=== PATIENT | female | born 1990 | race African-American/Black ===

== ENCOUNTER 2016-05-22 21:39 | Emergency (ER) | payer OTHER ==
[2016-05-22 21:54] VITALS: BP 118/60; PULSE 100; TEMP 98.1; BMI 50.8
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
== END 2016-05-23 01:56 | disposition home or self-care (01) ==
LOC: JERFT 21:39 → JER 21:39
DX: M54.5 Low back pain (principal); V43.52XA Car driver injured in collision with other type car in traffic accident, initial encounter; Y92.481 Parking lot as the place of occurrence of the external cause; Y93.89 Activity, other specified
CPT/HCPCS: 72050-TC; 72100-TC; 73562-TC-RT; 99282-25

== ENCOUNTER 2016-08-13 09:39 | Emergency (ER) | payer OTHER ==
[2016-08-13 09:43] VITALS: BP 128/72; PULSE 93; TEMP 98; BMI 49.1
--- NOTE | 2016-08-13 10:37 | PDOC ---
History of Present Illness - General Chief Complaint: Pain Stated Complaint: LT SIDE PAIN Time Seen by Provider: 08/13/16 09:58 History Source: Patient Exam Limitations: No Limitations - History of Present Illness Travel History: No Initial Comments: 08/13/16 10:29 25 yr female with c/o left lower quadrant pain for one week and urinary urgency. Pt denies fever or chills no back pain neg nvd. Pt states she would like to be tested for STD's as she has recently become aware her boyfriend has other sexual partners. Pt has no medical history, states had chlamydia 9 yrs ago. Timing/Duration: reports: constant Quality: reports: mild Abdominal Pain Onset Location: reports: LLQ Pain Radiation: reports: no radiation Activities at Onset: reports: none Past History - Past Medical History Allergies/Adverse Reactions: Allergies Allergy/AdvReac Type Severity Reaction Status Date / Time No Known Allergies Allergy Verified 08/13/16 09:44 Home Medications: Ambulatory Orders NK [No Known Home Medication] 08/13/16 - Surgical History Abdominal Surgery: Yes - Psycho/Social/Smoking Cessation Hx Anxiety: No Suicidal Ideation: No Smoking Status: No Smoking History: Never smoked Have you smoked in the past 12 months: No Number of Cigarettes Smoked Daily: 0 Information on smoking cessation initiated: No Hx Alcohol Use: No Drug/Substance Use Hx: No Substance Use Type: None *Physical Exam - Vital Signs Last Vital Signs Temp Pulse Resp BP Pulse Ox 98 F 93 H 18 128/72 98 08/13/16 09:40 08/13/16 09:40 08/13/16 09:40 08/13/16 09:40 08/13/16 09:40 - Physical Exam General Appearance: Yes: Nourished, Appropriately Dressed HEENT: positive: EOMI, ERIK Neck: positive: Supple. negative: Tender Respiratory/Chest: positive: Lungs Clear, Normal Breath Sounds Cardiovascular: positive: Regular Rhythm, Regular Rate Female Pelvic Exam: positive: normal external exam, normal adnexa. negative: discharge, lesions Gastrointestinal/Abdominal: positive: Normal Bowel Sounds, Soft Musculoskeletal: positive: Normal Inspection Extremity: positive: Normal Capillary Refill, Normal Inspection, Normal Range of Motion Integumentary: positive: Normal Color, Dry, Warm Neurologic: positive: Fully Oriented, Alert, Normal Mood/Affect, Normal Response , Motor Strength 5/5 *DC/Admit/Observation/Transfer Diagnosis at time of Disposition: Vaginal discharge - Discharge Dispostion Disposition: HOME Condition at time of disposition: Good - Referrals Referrals: Marcus Cardenas MD [Primary Care Provider] - - Patient Instructions Additional Instructions: 08/13/16 1. As discussed, a screening test for the HIV virus was performed today. Your HIV test is Negative (normal). 2. As discussed, if you engaged in high risk-behavior in the three (3) months prior to this test, you could still potentially be at risk and you will need to be re-tested. 3. As discussed, avoid any high risk behavior (such as unprotected sex or needle-sharing) in the future to minimize the chances of clari HIV. follow with your clinical program director for follow up in 6 months for a repeat HIV test, the test today was negative but you should have another one in 6 months we will call you if any of the cultures are POSITIVE for infection always use condoms avoid any activity until your symptoms have resolved
[2016-08-13 12:30] LABS: HIV 1 & 2 AB NEGATIVE; HIV 1 AGp24 NEGATIVE
[2016-08-13 12:49] LABS: URINE APPEARANCE CLEAR; URINE BILIRUBIN NEGATIVE (NEGATIVE); URINE BLOOD NEGATIVE (NEGATIVE); URINE COLOR LTYELLOW; URINE GLUCOSE (UA) NEGATIVE (NEGATIVE); URINE KETONE NEGATIVE (NEGATIVE); URINE LEUK ESTERASE NEGATIVE (NEGATIVE); URINE NITRITE NEGATIVE (NEGATIVE); URINE PROTEIN NEGATIVE (NEGATIVE); URINE UROBILINOGEN NEGATIVE E.U./dl (0.2-1.0)
== END 2016-08-13 15:25 | disposition home or self-care (01) ==
LOC: JERFT 09:39
DX: N89.8 Other specified noninflammatory disorders of vagina (principal)
CPT/HCPCS: 36415; 76856-TC; 80074; 81003; 84703; 86593; 87070; 87081; 87205; 87389; 87491; 87591; 99281-25

== ENCOUNTER 2016-09-03 08:35 | Day surgery (SDC) | payer OTHER ==
[2016-09-03 08:42] VITALS: TEMP 97.9; BMI 45.4
--- NOTE | 2016-09-03 09:56 | PDOC ---
History of Present Illness - General Chief Complaint: Abscess Boil Stated Complaint: ABSCESS/ RT AXILLA Time Seen by Provider: 09/03/16 09:29 History Source: Patient Exam Limitations: No Limitations - History of Present Illness Initial Comments: 09/03/16 10:58 My chief complaint: Painful reddened area right under arm History of present illness: She is a 25 year old female here today complaining of severe tenderness under her right arm with slight redness and swelling of area getting worse over the last 3 weeks. Patient reports that she always had an area of "fat" anterior rt.axilla not on left getting larger over last few months. Patient reports the pain currently is a 10 out of 10 right exactly up. Patient denies any fever. Patient reports that she does wear deodorant and sometimes switches the brand. Patient reports having an abscess posterior to reddened area and right axilla area today a few months ago that she let come to a head and she squeezed the area and currently has a small scar noted in the area. She also reports having a small nontender right reddened area left medial breast and left lower abdomen. 09/03/16 11:03 09/03/16 11:48 09/03/16 12:09 09/03/16 13:05 Timing/Duration: getting worse (over 3 weeks ) Severity: severe (rt. axilla) Associated Symptoms: reports: denies symptoms Past History - Past Medical History Allergies/Adverse Reactions: Allergies Allergy/AdvReac Type Severity Reaction Status Date / Time No Known Allergies Allergy Verified 09/03/16 08:43 Home Medications: Ambulatory Orders NK [No Known Home Medication] 08/13/16 Other medical history: PATIENT DENIES MEDICAL HX - Surgical History Abdominal Surgery: Yes (TUBAL LIGATION) - Psycho/Social/Smoking Cessation Hx Anxiety: No Suicidal Ideation: No Smoking Status: No Smoking History: Never smoked Have you smoked in the past 12 months: No Number of Cigarettes Smoked Daily: 0 Hx Alcohol Use: No Drug/Substance Use Hx: No Substance Use Type: None Review of Systems - Review of Systems Able to Perform ROS?: Yes Constitutional: No: Symptoms Reported HEENTM: No: Symptoms Reported Respiratory: No: Symptoms reported Cardiac (ROS): No: Symptoms Reported ABD/GI: No: Symptoms Reported : No: Symptoms Reported Musculoskeletal: No: Symptoms Reported Integumentary: Yes: Other (painful raised area rt. axilla getting worse over 3 weeks ) Neurological: No: Symptoms reported *Physical Exam - Vital Signs Last Vital Signs Temp Pulse Resp BP Pulse Ox 97.9 F 90 18 119/90 98 09/03/16 08:40 09/03/16 08:40 09/03/16 08:40 09/03/16 08:40 09/03/16 08:40 - Physical Exam General Appearance: Yes: Appropriately Dressed Respiratory/Chest: positive: Lungs Clear, Normal Breath Sounds Cardiovascular: positive: Regular Rhythm, Regular Rate, S1, S2 Integumentary: positive: Erythema (rt. axilla tender fluculant area approx 3 cm diameter, (very difficult to palpate due to pain ), Other (pea size non tender, non raised left breast at 8 o'clock, left lower abdomen) Neurologic: positive: Alert, Normal Response, Responsive ED Treatment Course - LABORATORY CBC & Chemistry Diagram: 09/03/16 11:25 09/03/16 11:25 Medical Decision Making - Medical Decision Making 09/03/16 11:52 Patient is a 25 year old female here today complaining of severe tenderness under her right arm with slight redness and swelling of area getting worse over the last 3 weeks. Patient reports that she always had an area of "fat" anterior rt.axilla not on left getting larger over last few months. Patient reports the pain currently is a 10 out of 10 right exactly up. Patient denies any fever. Patient reports that she does wear deodorant and sometimes switches the brand. Patient reports having an abscess posterior to reddened area and right axilla area today a few months ago that she let come to a head and she squeezed the area and currently has a small scar noted in the area. She also reports having a small nontender right reddened area left medial breast and left lower abdomen. r/o rt. hidradenitiis suppurativa versus deep complicated abscess PLAN: urine hcg negative surgical consult with Dr. Mcdaniel she recommended: cbc with diff bmp urine hcg CT soft tissue with IV contrast rt. axilla to rule out complicated abscess IV insert pt is stable and is able to be transferred to main ED Dr. Luz attending and Maliha charge nurse aware 09/03/16 12:10 09/03/16 13:08 *DC/Admit/Observation/Transfer Diagnosis at time of Disposition: Abscess
[2016-09-03 11:33] LABS: BASOPHIL 0.8 % (0-2.0); EOSINOPHIL 2.3 % (0-4.5); MCH 30.2 pg (25.7-33.7); MCHC 33.9 g/dl (32.0-36.0); MEAN CELL VOLUME 89.1 fl (80-96); MEAN PLT VOLUME 8.2 fl (7.5-11.1); PLATELET COUNT 332 K/MM3 (134-434); RDW 14.4 % (11.6-15.6); WHITE BLOOD COUNT 6.5 K/mm3 (4.0-10.0)
[2016-09-03] MEDS ORDERED: SODIUM CHLORIDE 0.9% 1000 ML INFUS.BAG IV ONE (11:38)
[2016-09-03] MEDS ORDERED: morphine CARPU-JECT 4 MG/1 ML DISP.SYRIN IVPUSH ONE ×2 (11:50→13:48)
[2016-09-03] MEDS ORDERED: morphine CARPU-JECT 4 MG/1 ML DISP.SYRIN ONE ×2 (11:50→13:51)
[2016-09-03 11:59] LABS: ANION GAP 7 (8-16); CALCIUM 8.9 mg/dL (8.5-10.1); CO2 26 mmol/L (21-32); GLUCOSE,RANDOM 84 mg/dL (74-106)
[2016-09-03 12:01] LABS: CREATININE 0.8 mg/dL (0.55-1.02)
--- NOTE | 2016-09-03 12:23 | CONSULT ---
Consult Consult Specialty:: General Surgery Referred by:: Mercedes Coffman Reason for Consultation:: right axillary abscess - History of Present Illness Chief Complaint: right axillary swelling and pain History of Present Illness: 25yo morbidly obese F, generally healthy, takes no regular medications, and describes h/o skin cysts which usually come to a head and open spontaneously or by patient and go away, presents with 2-3 weeks of right axillary swelling which more recently became painful, tender and warm with some redness. The pain has gotten so bad, it is interfering with movement of the right arm and her ability to wear a bra. She thought at first it was just the axillary fat pad getting bigger, then thought it would come to a head like previous cysts and she could pop it. She saw her PMD 3 days ago and was advised she may need to see a surgeon and was Rx an antibiotic, which she did not corn picker. She came to ER today because the pain was so bad and she could not wait to make an appointment with a surgeon. No fever/chills, n/v. She has had some lessened appetite in the last few weeks and occasional abdominal discomfort. No drainage from the axilla. Nothing on the other side. No history suggestive of hidradenitis. Surgery is consulted to evaluate for abscess. - History Source History Provided By: Patient Limitations to Obtaining History: No Limitations - Past Medical History ...: No ...Para: 3 (triplets) Dermatology: Yes: Other (tends to get skin cysts) Additional Medical History: morbid obesity - Past Surgical History Past Surgical History: Yes: , Tubal Ligation (with ) - Alcohol/Substance Use Hx Alcohol Use: No History of Substance Use: reports: None - Smoking History Smoking history: Never smoked Have you smoked in the past 12 months: No Aproximately how many cigarettes per day: 0 Home Medications - Allergies Allergies/Adverse Reactions: Allergies Allergy/AdvReac Type Severity Reaction Status Date / Time No Known Allergies Allergy Verified 09/03/16 08:43 - Home Medications Home Medications: Ambulatory Orders NK [No Known Home Medication] 08/13/16 Family Disease History - Family Disease History Family History: Unremarkable Review of Systems - Review of Systems Constitutional: reports: Loss of Appetite (at times in last couple weeks). denies: Chills, Fever Eyes: denies: Blurred Vision, Double Vision HENT: denies: Nasal Congestion, Throat Pain Neck: denies: Swollen Glands, Tenderness Cardiovascular: denies: Chest Pain, Palpitations Respiratory: denies: Cough, SOB Gastrointestinal: denies: Abdominal Pain, Constipation, Diarrhea, Nausea, Vomiting Genitourinary: denies: Burning, Dysuria Breasts: reports: Skin Changes (cysts sometimes). denies: Lumps Musculoskeletal: denies: Back Pain, Joint Swelling Integumentary: reports: Lump (R axilla see hpi), Other (cysts at times - they open or she pops when they come to a head). denies: Rash Neurological: denies: Dizziness, Headache Physical Exam Vital Signs: Vital Signs Temperature 97.9 F 09/03/16 08:40 Pulse Rate 90 09/03/16 08:40 Respiratory Rate 18 09/03/16 08:40 Blood Pressure 119/90 09/03/16 08:40 O2 Sat by Pulse Oximetry (%) 98 09/03/16 08:40 Constitutional: Yes: Calm, Mild Distress (pain from R axilla), Obese Eyes: Yes: Conjunctiva Clear, EOM Intact HENT: Yes: Atraumatic, Normocephalic Neck: Yes: Supple, Trachea Midline Cardiovascular: Yes: Regular Rate and Rhythm. No: Murmur Respiratory: Yes: Regular, CTA Bilaterally Gastrointestinal: Yes: Normal Bowel Sounds, Soft, Abdomen, Obese. No: Tenderness ...Rectal Exam: Yes: Deferred Renal/: No: CVA Tenderness - Left, CVA Tenderness - Right Breast(s): Yes: Skin Changes (small scar at lateral right breast from old cyst) , Other (no inframammary lesions or scars) Musculoskeletal: No: Joint Stiffness, Joint Swelling Extremities: No: Cool, Cyanosis Integumentary: Yes: Tattoos, Other (R axilla with mobile subcutaneous somewhat firm swelling, ~5-6cm round, very tender, small patch of erythema on surface ( only few cm), area warm, just below axillary crease, no punctum, no drainage, not frankly fluctuant but difficult to tolerate exam secondary to pain and tenderness) Neurological: Yes: Alert, Oriented Psychiatric: Yes: Alert, Oriented Labs: CBC, BMP 09/03/16 11:25 09/03/16 11:25 Imaging - Results Cat Scan: Report Reviewed (right axilla with chronic appearing abscess/ indurated tissue ~3cm superficially with additional 3cm stranded fat around with thin rim), Image Reviewed Problem List - Problems (1) Lump in armpit Assessment/Plan: Chronic-appearing abscess with superficial area of enhancing, indurated fat with minimal if any fluid component Patient will not tolerate local procedure in ER Discussed R/B/A of I&D/excisional debridement of right axillary abscess in OR setting including but not limited to bleeding, infection, injury to axillary structures. Patient is agreeable to procedure and signed informed consent for same. Will take to OR and plan d/c from PACU to home with f/u Saturday in clinic. Perioperative abx IV and Augmentin/Clinda for 5d postop at home. Pt is NPO since last night except chayito mega at 7am. Fluids in ER until OR. Qualifiers: Laterality: right Qualified Code(s): R22.31 - Localized swelling, mass and lump, right upper limb (2) Morbid obesity with BMI of 45.0-49.9, adult Code(s): E66.01 - MORBID (SEVERE) OBESITY DUE TO EXCESS CALORIES Z68.42 - BODY MASS INDEX (BMI) 45.0-49.9, ADULT
--- NOTE | 2016-09-03 12:46 | PDOC ---
*Physical Exam - Vital Signs Last Vital Signs Temp Pulse Resp BP Pulse Ox 97.9 F 90 18 119/90 98 09/03/16 08:40 09/03/16 08:40 09/03/16 08:40 09/03/16 08:40 09/03/16 08:40 - Physical Exam General Appearance: Yes: Appropriately Dressed Respiratory/Chest: positive: Lungs Clear, Normal Breath Sounds Cardiovascular: positive: Regular Rhythm, Regular Rate, S1, S2 Gastrointestinal/Abdominal: positive: Normal Bowel Sounds, Flat, Soft. negative : Tender Musculoskeletal: positive: Normal Inspection Extremity: positive: Normal Capillary Refill Integumentary: positive: Normal Color, Warm, Other (right axilla with warmth, fluctuance, ttp. palp abscess) Neurologic: positive: Fully Oriented, Alert, Abnormal Cranial NS ED Treatment Course - LABORATORY CBC & Chemistry Diagram: 09/03/16 11:25 09/03/16 11:25 - ADDITIONAL ORDERS Additional order review: Laboratory Results 09/03/16 09/03/16 11:41 11:25 Sodium 138 Potassium 4.0 Chloride 105 Carbon Dioxide 26 Anion Gap 7 L BUN 10 Creatinine 0.8 Random Glucose 84 Calcium 8.9 Urine HCG, Qual Negative 09/03/16 11:25 RBC 4.07 MCV 89.1 MCHC 33.9 RDW 14.4 MPV 8.2 Neutrophils % 60.0 Lymphocytes % 31.8 Monocytes % 5.1 Eosinophils % 2.3 Basophils % 0.8 - Medications Given in the ED: ED Medications Discontinued Medications Generic Name Dose Route Start Last Admin Trade Name Freq PRN Reason Stop Dose Admin Morphine Sulfate 4 mg 09/03/16 11:50 09/03/16 12:06 Morphine Injection - IVPUSH 09/03/16 11:51 4 mg ONCE ONE Administration Sodium Chloride 1,000 ml 09/03/16 11:38 09/03/16 12:06 Normal Saline - IV 09/03/16 11:39 1,000 ml ONCE ONE Administration Medical Decision Making - Medical Decision Making 09/03/16 12:45 25 yo F with right axilla abscess. seen initially in fast track. bumped to ED following surgery consult.pending CT axilla r/o involving surrounding vascular or lymph structures. plan abx, i&D. pt seen and examined in conjunction with Dr. Coffman , agree with plan. *DC/Admit/Observation/Transfer Diagnosis at time of Disposition: Abscess - Discharge Dispostion Admit: Yes
[2016-09-03] MEDS ORDERED: CLINDAMYCIN 900 MG PREMIX IVPB 50 ML IVPB ONE (16:08)
[2016-09-03] MEDS ORDERED: PIPERACILLIN/TAZOB 4.5 GM 100 ML IVPB ONE ×2 (16:08→16:32)
[2016-09-03] MEDS ORDERED: LACTATED RINGERS SOLUTION 1,000 ML IV SCH ×2 (16:15→20:00)
[2016-09-03] MEDS ORDERED: ONDANSETRON 4 MG/2 ML VIAL IVPUSH PRN (19:47)
[2016-09-03] MEDS ORDERED: PROMETHAZINE HCL 25 MG/1 ML VIAL IVPUSH PRN (19:47)
[2016-09-03] MEDS ORDERED: PROPOFOL 20 ML ONE (20:12)
[2016-09-03] MEDS ORDERED: MIDAZOLAM HCL 2 MG/2 ML SINGLE DOSE VIAL ONE ×2 (20:13→21:00)
[2016-09-03] MEDS ORDERED: LIDOCAINE HCL/PF 2% SDV 5ML VIAL ONE (20:14)
[2016-09-03] MEDS ORDERED: KETOROLAC TROMETHAMINE 30 MG/1 ML VIAL ONE (20:28)
[2016-09-03] MEDS ORDERED: DEXAMETHASONE SOD PHOSPHATE 4 MG/1 ML VIAL ONE (20:28)
[2016-09-03] MEDS ORDERED: GLYCOPYRROLATE 0.2 MG/1 ML VIAL ONE (20:30)
[2016-09-03] MEDS ORDERED: BUPIVACAINE HCL/PF 0.5% (5MG/ML) 10 ML VIAL ONE (20:42)
[2016-09-03] MEDS ORDERED: BUPIVACAINE HCL/PF 0.5% (5MG/ML) 10 ML VIAL IJ ONE (20:44)
[2016-09-03] MEDS ORDERED: ACETAMINOPHEN 1000 MG/100 ML VIAL (NON FORMULARY) IVPB ONE (21:08)
[2016-09-03] MEDS ORDERED: HYDROmorphone HCL CARPU-JECT 1 MG/1 ML DISP.SYRIN IVPUSH PRN (21:09)
--- NOTE | 2016-09-03 21:44 | OP ---
Operative Note - Note: Operative Date: 09/03/16 Pre-Operative Diagnosis: right axillary abscess Operation: complicated incision and drainage of right axillary abscess with excisional debridement of skin and subcutaneous tissue ~9cm2 Findings: pus evacuated and cultured Post-Operative Diagnosis: Same as Pre-op Surgeon: Jose Miguel Mcdaniel Anesthesiologist/LEADING FIREFIGHTER: Kristopher Ocasio Anesthesia: General (LMA), Local (10ml 0.25% marcaine) Specimens Removed: pus sent for culture on swab; skin and subcutaneous tissue excised but not sent to pathology Estimated Blood Loss (mls): 15 Instrument used (Debridements only): scalpel, cautery, forceps Fluid Volume Replaced (mls): 400 (crystalloid) Operative Report Dictated: Yes
[2016-09-03] MEDS ORDERED: ACETAMINOPHEN 325 MG TABLET (FP) PO ONE (22:15)
[2016-09-03] MEDS ORDERED: oxyCODONE HCL 5 MG TABLET PO ONE (22:15)
[2016-09-04 00:35] VITALS: BP 136/74; PULSE 88
--- NOTE | 2016-09-11 15:34 | OP ---
DATE OF OPERATION: 09/03/2016 PREOPERATIVE DIAGNOSIS: Right axillary abscess. POSTOPERATIVE DIAGNOSIS: Right axillary abscess. PROCEDURE PERFORMED: Complicated incision and drainage of right axillary abscess with excisional debridement of skin and subcutaneous tissue (approximately 9 sq cm). SURGEON: Jose Miguel Mcdaniel MD ANESTHESIA: General by LMA and local, 10 mL of 0.25% Marcaine plain. ESTIMATED BLOOD LOSS: 15 mL FLUIDS: 400 mL of crystalloid. SPECIMENS: Pus was sent for culture on a swab. There were no specimens sent to Pathology. FINDINGS: Pus was evacuated and cultured. The cavity was packed. DISPOSITION: Stable and awake to PACU. INDICATIONS FOR PROCEDURE: The patient is a 25-year-old, morbidly obese female, otherwise generally healthy, who presents with a history of intermittent skin cysts which usually open and drain spontaneously or are squeezed open by the patient and resolved, who now presents with 2-3 weeks of right axillary swelling which in the last several days had become far more painful, tender, and warm with some redness to the area. She had seen her primary care doctor several days prior, was advised she may need to see a surgeon and was prescribed an antibiotic which she had not yet picked up from the pharmacy, and came to the emergency room because the pain was so bad she did not feel she could wait for an appointment with a surgeon. There were no history or physical signs consistent with hidradenitis, but a CT scan was done to evaluate the extent of the abscess, which showed indurated and enhancing fat approximately 3 cm in a superficial area in the right axilla, surrounded by a wider rim of fat in a thin capsule, reflective potentially of a chronic abscess, without a significant amount of fluid component centrally. The patient could barely tolerate significant palpation of the area. She agreed to be taken to the operating room for better anesthesia and an opportunity to open and drain this area or excise any tissue mass that was found. Risks, benefits, and alternatives of incision and drainage of the axillary abscess with excisional debridement of the area were discussed with the patient including, but not limited to, bleeding, infection, recurrence, injury to local structures, and need for further procedures. The patient has agreed to the operation and has signed informed consent for the same. OPERATIVE TECHNIQUE: The patient is brought to the operating room and laid supine on the operating table. Sequential compression devices were applied to bilateral lower extremities, and as the patient had just been given antibiotics, including clindamycin and Zosyn in the emergency room, no additional antibiotics were given immediately prior to the procedure. After induction and placement of an LMA by Anesthesia, her right arm was raised and positioned carefully to expose the right axilla, taking care to ensure there were no issues with positioning with regard to her shoulder. The right axilla was prepped and draped with Betadine in sterile fashion. An incision was made with a scalpel just below the axillary crease with immediate evacuation of a fair amount of pus , which was cultured on a swab and sent for microbiology. The pus was evacuated with suction and lap pads. The cavity was gently explored manually, and a few small loculations broken up. The cavity was noted to be of [id number] size without significant sinus tracts, but there was a very thin layer of skin overlying the most lateral portion. In part because of concerns about the skin becoming necrotic, and also to facilitate the opening of the wound for appropriate packing, a small ellipse of skin was excised with electrocautery. The skin and subcutaneous tissue were passed off the field but were not sent to Pathology as a specimen. The cavity was inspected and cleansed with saline solution and suctioned clear to ensure that there was no purulent content remaining. Hemostasis was ultimately achieved with electrocautery and some local pressure. The cavity was then irrigated again, hemostasis noted to be appropriate, and the cavity was packed with a length of 2 -inch roll gauze dampened with saline solution and a little bit of betadine. It was covered with gauze and dressed with tape. Counts were correct at the end of the procedure. The patient was then awakened and the LMA removed by Anesthesia. She was able to assist with moving herself back onto the stretcher, after which, she was taken to the recovery room in stable condition, having tolerated the procedure well. Jose Miguel Mcdaniel M.D. [id number] MTDD
== END 2016-09-03 23:00 | disposition home or self-care (01) ==
LOC: JER 08:35 → JERFT 08:35 → JASUSAT 16:20 → J6S 22:22 → JASUSAT 23:00
PROVIDERS: ATTEND Surgery
PROC: 0HB5XZZ Excision of Chest Skin, External Approach (ICD-10-PCS; 2016-09-03)
PROC: 0J960ZZ Drainage of Chest Subcutaneous Tissue and Fascia, Open Approach (ICD-10-PCS; principal; 2016-09-03 20:37)
DX: L02.411 Cutaneous abscess of right axilla (principal)
CPT/HCPCS: 36415; 73201-TC-RT; 80048; 84703; 85025; 87070; 87205; 94760; 99284-25

== ENCOUNTER 2016-09-07 12:45 | Emergency (ER) | payer OTHER ==
--- NOTE | 2016-09-07 12:50 | PDOC ---
History of Present Illness - General Stated Complaint: Wound Time Seen by Provider: 09/07/16 12:47 - History of Present Illness Initial Comments: 25 year old otherwise healthy female presenting with bleeding from a recent right axillary cystectomy site. She underwent a cystectomy that was significant for slight difficulty in homeostatic control on Saturday and only noticed slight bleeding from the site daily until Saturday at which point she noticed consistently trickling blood after a dressing change. She went to her PCP (Ronald Rinaldi's office) and they sent her to the ED. Upon arrival she had a consistent stream of bright blood coursing down her axilla from a clean cystectomy opening. There were multiple piles of guaze that were blood soaked around the stretcher. Denies palpitations, fever's chills, nausea, vomiting,or other symptoms. 09/07/16 14:35 09/07/16 16:16 Past History - Past Medical History Allergies/Adverse Reactions: Allergies Allergy/AdvReac Type Severity Reaction Status Date / Time No Known Allergies Allergy Verified 09/07/16 13:39 Home Medications: Ambulatory Orders Amoxicillin/Potassium Clav [Augmentin 875-125 Tablet] 1 tab PO BID #10 tablet Clindamycin HCl 300 mg PO TID #30 capsule 09/03/16 Oxycodone HCl/Acetaminophen [Percocet 5-325 mg Tablet] 1 - 2 tab PO Q6H PRN #42 tab MDD 8 09/03/16 Oxycodone HCl/Acetaminophen [Percocet 5-325 mg Tablet -] 1 combo PO Q6H PRN #4 tablet MDD 4 09/07/16 - Surgical History Abdominal Surgery: Yes (TUBAL LIGATION) - Psycho/Social/Smoking Cessation Hx Anxiety: No Suicidal Ideation: No Smoking Status: No Smoking History: Never smoked Have you smoked in the past 12 months: No Number of Cigarettes Smoked Daily: 0 Hx Alcohol Use: No Drug/Substance Use Hx: No Substance Use Type: None Review of Systems - Review of Systems Constitutional: No: Chills, Diaphoresis, Fever, Loss of Appetite HEENTM: No: Blurred Vision, Recent change in vision Respiratory: No: Cough, Orthopnea, Shortness of Breath Cardiac (ROS): Yes: Lightheadedness. No: Edema ABD/GI: No: Constipated, Diarrhea, Nausea, Vomiting Integumentary: No: Bruising, Change in Color Neurological: No: Headache, Numbness *Physical Exam - Physical Exam General Appearance: Yes: Appropriately Dressed, Apparent Distress, Moderate Distress HEENT: positive: EOMI, ERIK, Normal ENT Inspection, Normal Voice Neck: positive: Trachea midline, Normal Thyroid. negative: Tender Respiratory/Chest: positive: Lungs Clear, Normal Breath Sounds. negative: Chest Tender, Respiratory Distress, Accessory Muscle Use Cardiovascular: positive: Regular Rhythm, Regular Rate, S1, S2 Gastrointestinal/Abdominal: positive: Normal Bowel Sounds, Flat, Soft. negative : Tender Extremity: positive: Normal Capillary Refill, Normal Inspection, Tender Integumentary: positive: Other (Axillary) Neurologic: positive: Fully Oriented, Alert ED Treatment Course - LABORATORY CBC & Chemistry Diagram: 09/07/16 13:46 Medical Decision Making - Medical Decision Making Previously healthy 25 year old 4 days s/p axillary cystectomy presenting with consistent trickle of blood from the open incision site. As son as the patient arrived hemostasis was achieved as per the procedure note above. VSS and HgB stable per her baseline. Discussed with Dr. Quarles and she admits there was difficulty achieving hemostasis in the OR and the patient can go home once adequate hemostasis achieved and if they are otherwise stable. Will reassess and discharge if VSS and bleeding from site minimal. 09/07/16 15:02 09/07/16 16:17 Bleeding controlled and patient stable. Will send home with wound care instructions and physician follow up. *DC/Admit/Observation/Transfer Diagnosis at time of Disposition: Hemorrhage from wound - Discharge Dispostion Disposition: HOME Condition at time of disposition: Improved Admit: No - Prescriptions Prescriptions: Oxycodone HCl/Acetaminophen [Percocet 5-325 mg Tablet -] 1 combo PO Q6H PRN #4 tablet MDD 4 PRN Reason: Pain - Referrals Referrals: Jose Miguel Mcdaniel MD [Staff Physician] - - Attestations Physician Attestion: 09/07/16 16:21 I, Dr. Danelle Salinas, attest that this document has been prepared under my direction and personally reviewed by me in its entirety. I further attest, that it accurately reflects all work, treatment, procedures and medical decision -making performed by me.
[2016-09-07] MEDS ORDERED: LIDOCAINE 1%/EPI 1:100000 (50 ML MULTI DOSE VIAL) ONE (13:05)
--- NOTE | 2016-09-07 13:32 | PDOC ---
Attending Attestation - Resident Resident Name: Danelle Salinas - ED Attending Attestation I have performed the following: I have examined & evaluated the patient, The case was reviewed & discussed with the resident, I agree w/resident's findings & plan, Exceptions are as noted - HPI HPI: 09/07/16 13:26 25F s/p cystectomy from R breast 5 days ago presents with bleeding from wound afater attempting dressing change Pt noted to have oozing blood from her wound Injected lido with epi and with pressure bleedin stopped will obtain cbc to r/o anemia will discuss with dr. new 09/07/16 15:19 no further bleeding labs show no anemia pts wound was packed and taped will have pt fu wit hdr. Jonas return precautions were discussed - Physicial Exam PE: 09/07/16 15:19 see above - Medical Decision Making 09/07/16 15:20 see above
[2016-09-07] MEDS ORDERED: LIDOCAINE 2%/EPINEPHRINE 1:100000 (50 ML MD VIAL) PNB ONE (13:33)
[2016-09-07 13:54] VITALS: BMI 44.6
[2016-09-07 14:05] LABS: BASOPHIL 0.3 % (0-2.0); EOSINOPHIL 2.3 % (0-4.5); MCH 30.1 pg (25.7-33.7); MCHC 34.1 g/dl (32.0-36.0); MEAN CELL VOLUME 88.3 fl (80-96); MEAN PLT VOLUME 8.4 fl (7.5-11.1); NEUTROPHILS 51.8 % (42.8-82.8); PLATELET COUNT 335 K/MM3 (134-434); RDW 14.2 % (11.6-15.6); WHITE BLOOD COUNT 7.6 K/mm3 (4.0-10.0)
[2016-09-07] MEDS ORDERED: ACETAMINOPHEN 325 MG TABLET (FP) PO ONE (16:44)
[2016-09-07] MEDS ORDERED: ACETAMINOPHEN 325 MG TABLET (FP) ONE (16:49)
[2016-09-07 16:55] VITALS: BP 131/65; PULSE 81; TEMP 98.2
== END 2016-09-07 16:55 | disposition home or self-care (01) ==
LOC: JER 12:45
PROC: 0XQ4XZZ Repair Right Axilla, External Approach (ICD-10-PCS; principal; 2016-09-07)
DX: L76.22 Postprocedural hemorrhage of skin and subcutaneous tissue following other procedure (principal)
CPT/HCPCS: 17250; 36415; 85025; 99282-25

== ENCOUNTER 2017-12-11 18:40 | Emergency (ER) | payer OTHER ==
[2017-12-11 18:47] VITALS: BP 123/68; PULSE 114; TEMP 98.5; BMI 44.6
--- NOTE | 2017-12-11 18:48 | PDOC ---
Rapid Medical Evaluation Time Seen by Provider: 12/11/17 18:42 Medical Evaluation: Allergies Allergy/AdvReac Type Severity Reaction Status Date / Time No Known Allergies Allergy Verified 09/07/16 13:39 12/11/17 18:43 I have performed a brief in-person evaluation of this patient. The patient presents with a chief complaint of: sore throat and dysuria Pertinent physical exam findings: OP- erythematous with exudates b/l. Lungs CTAB. No CVAT. STRIPPER SOFT PLASTIC-deferred I have ordered the following: rapid strep, ekg, Tylenol, decadron, urine The patient will proceed to the ED for further evaluation. Discharge Disposition - Diagnosis Pharyngitis - Referrals - Patient Instructions - Post Discharge Activity
[2017-12-11] MEDS ORDERED: AZITHROMYCIN 250 MG TABLET PO ONE (19:00)
[2017-12-11] MEDS ORDERED: ACETAMINOPHEN 500 MG TABLET (FP) PO ONE (19:00)
[2017-12-11] MEDS ORDERED: ACETAMINOPHEN 500 MG TABLET (FP) ONE (19:05)
--- NOTE | 2017-12-11 19:05 | PDOC ---
History of Present Illness - General Chief Complaint: Cold Symptoms Stated Complaint: COLD SYMPTOMS, BACK PAIN Time Seen by Provider: 12/11/17 18:42 - History of Present Illness Initial Comments: 12/11/17 19:03 27-year-old female without comorbidities presents for evaluation of 3 days of sore throat urinary symptoms and concerns about STD's exposure. She has no vaginal symptoms but would be like to be treated for gonorrhea and chlamydia. She has declined HIV testing because she does not want to wait. Past History - Past Medical History Allergies/Adverse Reactions: Allergies Allergy/AdvReac Type Severity Reaction Status Date / Time No Known Allergies Allergy Verified 09/07/16 13:39 Home Medications: Ambulatory Orders NK [No Known Home Medication] 12/11/17 COPD: No CHF: No DVT: No - Surgical History Abdominal Surgery: Yes (TUBAL LIGATION) - Immunization History Immunization Up to Date: No - Suicide/Smoking/Psychosocial Hx Smoking Status: No Smoking History: Never smoked Have you smoked in the past 12 months: No Number of Cigarettes Smoked Daily: 0 Information on smoking cessation initiated: No Hx Alcohol Use: No Drug/Substance Use Hx: No Substance Use Type: None Review of Systems - Review of Systems HEENTM: Yes: Throat Pain : Yes: Dysuria All Other Systems: Reviewed and Negative *Physical Exam - Vital Signs Last Vital Signs Temp Pulse Resp BP Pulse Ox 98.5 F 114 H 18 123/68 100 12/11/17 18:45 12/11/17 18:45 12/11/17 18:45 12/11/17 18:45 12/11/17 18:45 - Physical Exam Comments: 12/11/17 19:04 HEAD: NC/AT EYES: Conjuntiva clear Ears: Canals and TM's normal NOSE: No d/c THROAT: Moist mucous membrances, oral pharanx erythemic with exudate, uvula midline NECK: Supple without adenopathy CARDIAC: S1 S2 LUNGS: CTA Full and Equal breath sounds ABDOMEN: Soft NT ND MS: Full ROM in all joints without edema NEUROLOGIC: No gross sensory or motor deficits, NVID SKIN: Normal color and temperature no lesions or rashes Medical Decision Making - Medical Decision Making 12/11/17 21:24 URI, strep negative, treated for GC and C. Throat cx sent. *DC/Admit/Observation/Transfer Diagnosis at time of Disposition: Pharyngitis, Concern about STD in female without diagnosis, URI (upper respiratory infection) - Discharge Dispostion Disposition: HOME Condition at time of disposition: Stable Decision to Admit order: No - Referrals Referrals: Marcus Cardenas MD [Primary Care Provider] - - Patient Instructions Printed Discharge Instructions: DI for Viral Upper Respiratory Infection -- Adult, Chlamydia: The Silent STD, How to Detect and Treat STDs, Facts About Sexually Transmitted Infections Additional Instructions: Gastrointestinal he was negative. He was treated for gonorrhea and chlamydia in the emergency room. Throat culture was sent should you require additional antibiotics will call you. Return to the emergency room should symptoms worsen ago unresolved follow-up with her primary care provider in 2-3 days further evaluation and treatment options. Warm saltwater gargles 5-6 times a day will help to throat pain. Please take Tylenol and Motrin as directed if needed - Post Discharge Activity
[2017-12-11] MEDS ORDERED: AZITHROMYCIN 250 MG TABLET ONE (19:08)
[2017-12-11 20:15] LABS: HCG,QUALITATIVE URINE Negative
[2017-12-11 20:16] LABS: URINE APPEARANCE CLEAR; URINE BILIRUBIN NEGATIVE (<2.0 mg/dL); URINE COLOR STRAW; URINE GLUCOSE (UA) NEGATIVE (NEGATIVE); URINE KETONE NEGATIVE (NEGATIVE); URINE LEUK ESTERASE TRACE (NEGATIVE); URINE NITRITE NEGATIVE (NEGATIVE); URINE PROTEIN NEGATIVE (NEGATIVE); URINE UROBILINOGEN NEGATIVE mg/dL (0.2-1.0)
[2017-12-11 20:18] LABS: EPI CELLS RARE /HPF (FEW); URINE BACTERIA RARE /hpf (NONE SEEN); URINE MUCUS RARE
== END 2017-12-11 21:29 | disposition home or self-care (01) ==
LOC: JERFT 18:40
DX: J02.9 Acute pharyngitis, unspecified (principal); Z20.2 Contact with and (suspected) exposure to infections with a predominantly sexual mode of transmission
CPT/HCPCS: 36415; 81003; 81015; 84703; 87070; 87086; 87430; 87491; 87591; 99281-25

== ENCOUNTER 2018-06-04 20:30 | Emergency (ER) | payer OTHER ==
[2018-06-04 20:34] VITALS: BP 120/85; PULSE 82; TEMP 98; BMI 44.8
--- NOTE | 2018-06-04 20:54 | PDOC ---
History of Present Illness - General Chief Complaint: Injury Stated Complaint: INJURY Time Seen by Provider: 06/04/18 20:48 - History of Present Illness Initial Comments: 06/04/18 20:53 27-year-old female without comorbidities presents for evaluation of left ankle pain after stepping in a pothole earlier today. She describes an inversion-type injury. Past History - Past Medical History Allergies/Adverse Reactions: Allergies Allergy/AdvReac Type Severity Reaction Status Date / Time No Known Allergies Allergy Verified 06/04/18 20:50 Home Medications: Ambulatory Orders NK [No Known Home Medication] 12/11/17 COPD: No CHF: No DVT: No - Surgical History Abdominal Surgery: Yes (TUBAL LIGATION) - Immunization History Immunization Up to Date: No - Suicide/Smoking/Psychosocial Hx Smoking Status: No Smoking History: Never smoked Have you smoked in the past 12 months: No Number of Cigarettes Smoked Daily: 0 Information on smoking cessation initiated: No Hx Alcohol Use: No Drug/Substance Use Hx: No Substance Use Type: None Review of Systems - Review of Systems Musculoskeletal: Yes: Joint Pain *Physical Exam - Vital Signs Last Vital Signs Temp Pulse Resp BP Pulse Ox 98.0 F 82 16 120/85 100 06/04/18 20:33 06/04/18 20:33 06/04/18 20:33 06/04/18 20:33 06/04/18 20:33 - Physical Exam Comments: 06/04/18 20:53 Left ankle skin color and temperature are normal. Range of motion is decreased. There is no tenderness about the knee proximal fibula or along its distal coarse. No tenderness about the medial malleolus navicular base of the fifth metatarsal. Tenderness about the lateral malleolus and ATFL. She is unable to tolerate stability testing she has no gross sensorimotor deficits. She is neurovascularly intact. ED Treatment Course - RADIOLOGY Radiology Studies Ordered: Category Date Time Status ANKLE-LEFT [RAD] Stat Radiology 06/04/18 20:52 Ordered Medical Decision Making - Medical Decision Making 06/04/18 21:10 X-rays negative for fracture trauma or destructive process. She may weight-bear as tolerated with use of crutches and Aircast follow-up with orthopedic surgery for further evaluation and treatment options discussed use of Tylenol and Motrin for pain. *DC/Admit/Observation/Transfer Diagnosis at time of Disposition: Ankle sprain - Discharge Dispostion Disposition: HOME Condition at time of disposition: Stable Decision to Admit order: No - Referrals Referrals: Marcus Cardenas MD [Primary Care Provider] - Reddy Valdovinos DO [Staff Physician] - - Patient Instructions Printed Discharge Instructions: DI for Ankle Sprain, Ankle Sprain Additional Instructions: Tylenol and Motrin as directed for pain. He may weight-bear as tolerated with the use of the Aircast and crutches. Return to the emergency room for worsening symptoms and follow-up with orthopedic surgery in 1-2 days for further evaluation and treatment options. - Post Discharge Activity
[2018-06-04] MEDS ORDERED: IBUPROFEN 600 MG TABLET (FP) PO ONE ×2 (21:10→21:15)
== END 2018-06-04 21:29 | disposition home or self-care (01) ==
LOC: JERFT 20:30
PROC: 2W3RX1Z Immobilization of Left Lower Leg using Splint (ICD-10-PCS; principal; 2018-06-04)
DX: S93.492A Sprain of other ligament of left ankle, initial encounter (principal); W17.2XXA Fall into hole, initial encounter; Y93.01 Activity, walking, marching and hiking; Y92.414 Local residential or business street as the place of occurrence of the external cause; Y99.8 Other external cause status
CPT/HCPCS: 73610-TC-LT-FY; 99281-25

== ENCOUNTER 2018-10-13 18:46 | Emergency (ER) | payer OTHER ==
[2018-10-13 18:55] VITALS: BP 120/62; PULSE 82; TEMP 98.1; BMI 46.9
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
--- NOTE | 2018-10-13 19:58 | PDOC ---
History of Present Illness - General Chief Complaint: Laceration Stated Complaint: LEFT THUMB INJURY Time Seen by Provider: 10/13/18 18:52 - History of Present Illness Initial Comments: 10/13/18 19:55 28-year-old female presents for evaluation of laceration of left thumb which occurred a week ago Past History - Past Medical History Allergies/Adverse Reactions: Allergies Allergy/AdvReac Type Severity Reaction Status Date / Time No Known Allergies Allergy Verified 10/13/18 18:55 Home Medications: Ambulatory Orders NK [No Known Home Medication] 12/11/17 COPD: No CHF: No DVT: No - Surgical History Abdominal Surgery: Yes (TUBAL LIGATION) - Immunization History Immunization Up to Date: No - Suicide/Smoking/Psychosocial Hx Smoking Status: No Smoking History: Never smoked Have you smoked in the past 12 months: No Number of Cigarettes Smoked Daily: 0 Information on smoking cessation initiated: No Hx Alcohol Use: No Drug/Substance Use Hx: No Substance Use Type: None Review of Systems - Review of Systems Musculoskeletal: Yes: See HPI *Physical Exam - Vital Signs Last Vital Signs Temp Pulse Resp BP Pulse Ox 98.1 F 82 18 120/62 100 10/13/18 18:53 10/13/18 18:53 10/13/18 18:53 10/13/18 18:53 10/13/18 18:53 - Physical Exam Comments: 10/13/18 19:56 There is a 1 cm laceration which is healing by secondary intention on the dorsum of the left MCP J on the ulnar aspect. There are no gross sensory motor deficits neurovascular intact normal surrounding skin color and temperature without indication of infection Medical Decision Making - Medical Decision Making 10/13/18 19:56 Nothing to do encouraged wound care with normal soap and water leaving the area open to air with hand surgery follow-up *DC/Admit/Observation/Transfer Diagnosis at time of Disposition: Open wound, hand - Discharge Dispostion Disposition: HOME Condition at time of disposition: Stable Decision to Admit order: No - Referrals Referrals: Marcus Cardenas MD [Primary Care Provider] - Matthew Hurley MD [Staff Physician] - - Patient Instructions Additional Instructions: Keep the area clean and dry with soap and water and leave it open to air. Return to the emergency room for worsening symptoms. Follow-up with hand surgery without fail in 1-2 days for further evaluation and treatment options. - Post Discharge Activity
== END 2018-10-13 20:02 | disposition home or self-care (01) ==
LOC: JERFT 18:46
DX: S61.412A Laceration without foreign body of left hand, initial encounter (principal); X99.8XXA Assault by other sharp object, initial encounter; Y93.89 Activity, other specified; Y92.89 Other specified places as the place of occurrence of the external cause; Y99.8 Other external cause status
CPT/HCPCS: 99281-25

== ENCOUNTER 2019-03-03 10:56 | Emergency (ER) | payer OTHER ==
[2019-03-03 11:19] VITALS: BP 148/91; PULSE 76; TEMP 98.5; BMI 41.5
[2019-03-03 12:47] LABS: BASO % 1.1 % (0-2.0); EOS % 2.7 % (0-4.5); HEMATOCRIT 34.7 % (32.4-45.2); HEMOGLOBIN 11.7 GM/dL (10.7-15.3); LYMPH % 38.8 % (8-40); MCH 29.8 pg (25.7-33.7); MCHC 33.7 g/dl (32.0-36.0); MEAN CELL VOLUME 88.6 fl (80-96); MEAN PLT VOLUME 8.7 fl (7.5-11.1); MONO % 6.1 % (3.8-10.2); NEUT % 51.3 % (42.8-82.8); PLATELET COUNT 346 K/MM3 (134-434); RBC 3.91 M/mm3 (3.60-5.2); RDW 15.3 % (11.6-15.6); WHITE BLOOD COUNT 5.4 K/mm3 (4.0-10.0)
[2019-03-03 12:51] LABS: PH,URINE 6.5 (5.0-8.0); URINE APPEARANCE Slightly Cloudy; URINE BILIRUBIN Negative (NEGATIVE); URINE COLOR Light yellow; URINE GLUCOSE (UA) Negative (NEGATIVE); URINE KETONE Negative (NEGATIVE); URINE LEUK ESTERASE 1+ (NEGATIVE); URINE NITRITE Negative (NEGATIVE); URINE PROTEIN Negative (NEGATIVE); URINE UROBILINOGEN 0.2 mg/dL (0.2-1.0)
--- NOTE | 2019-03-03 12:55 | PDOC ---
History of Present Illness <Flor Hernadez - Last Filed: 03/03/19 13:26> - General History Source: Patient Exam Limitations: Clinical Condition - History of Present Illness Initial Comments: 03/03/19 12:50 Patient with no significant past medical history present with complaint of 2 weeks history of persistent menstrual bleeding with intermittent crampy abdominal pain. Patient reported LMP February 14 which lasted for 3 days and started again 4 days after and has been having menstrual periods since then which has been intermittent with vaginal spotting alternating with bleeding soaking 2 pads per day. Patient reported some days she get bleeding some days she will get vaginal spotting. Patient status post tubal ligation 5 years ago. Denies vaginal discharge, nausea, vomiting, abdominal pain now, fever, chills. Patient reported history of normal menstrual. Until last month. Patient has not followed up with her INSPECTING ENGINEER or taking anything for symptoms Is this a multiple visit Asthma Patient?: No <HernánPeter Alan - Last Filed: 03/03/19 14:19> - General Chief Complaint: Vaginal Bleeding Stated Complaint: VAGINAL PAIN/ BLEEDING Time Seen by Provider: 03/03/19 11:32 Past History <Flor Hernadez - Last Filed: 03/03/19 13:26> - Past Medical History COPD: No CHF: No DVT: No - Surgical History Abdominal Surgery: Yes (TUBAL LIGATION) - Immunization History Immunization Up to Date: No - Psycho Social/Smoking Cessation Hx Smoking Status: No Smoking History: Never smoked Have you smoked in the past 12 months: No Number of Cigarettes Smoked Daily: 0 Information on smoking cessation initiated: No Hx Alcohol Use: No Drug/Substance Use Hx: No Substance Use Type: None <Peter Jim - Last Filed: 03/03/19 14:19> - Past Medical History Allergies/Adverse Reactions: Allergies Allergy/AdvReac Type Severity Reaction Status Date / Time No Known Allergies Allergy Verified 03/03/19 11:15 Home Medications: Ambulatory Orders NK [No Known Home Medication] 12/11/17 Review of Systems - Review of Systems Able to Perform ROS?: Yes Is the patient limited Armenian proficient: No Constitutional: No: Chills, Fever, Malaise HEENTM: No: Symptoms Reported, See HPI, Eye Pain, Blurred Vision, Tearing, Recent change in vision, Double Vision, Cataracts, Ear Pain, Ocular Prothesis, Ear Discharge, Nose Pain, Nose Congestion, Tinnitus, Nose Bleeding, Hearing Loss , Throat Pain, Throat Swelling, Mouth Pain, Dental Problems, Difficulty Swallowing, Mouth Swelling, Other Respiratory: No: Symptoms reported, See HPI, Cough, Orthopnea, Shortness of Breath, SOB with Exertion, SOB at Rest, Stridor, Wheezing, Productive cough, Hemoptysis, Other Cardiac (ROS): No: Symptoms Reported, See HPI, Chest Pain, Edema, Irregular Heart Rate, Lightheadedness, Palpitations, Syncope, Chest Tightness, Other ABD/GI: No: Symptoms Reported, See HPI, Nausea, Vomiting, Abdominal cramping ( intermittent lower abdominal cramping) : Yes: Symptoms Reported, See HPI, Other (vaginal bleeding). No: Burning, Dysuria, Discharge, Frequency, Flank Pain, Urgency Musculoskeletal: No: Symptoms Reported Integumentary: No: Symptoms Reported Neurological: No: Symptoms reported, Numbness, Weakness, Dizziness All Other Systems: Reviewed and Negative <HernánPeter Phillips - Last Filed: 03/03/19 14:19> *Physical Exam - Vital Signs Last Vital Signs Temp Pulse Resp BP Pulse Ox 98.5 F 76 16 148/91 100 03/03/19 11:15 03/03/19 11:15 03/03/19 11:15 03/03/19 11:15 03/03/19 11:15 <Flor Hernadezrobincoral - Last Filed: 03/03/19 13:26> - Vital Signs Last Vital Signs Temp Pulse Resp BP Pulse Ox 98.5 F 76 16 148/91 03/03/19 11:15 03/03/19 11:15 03/03/19 11:15 03/03/19 11:15 03/03/19 11:15 - Physical Exam General Appearance: Yes: Nourished, Appropriately Dressed. No: Apparent Distress HEENT: positive: Normal ENT Inspection Neck: positive: Supple Respiratory/Chest: positive: Lungs Clear, Normal Breath Sounds. negative: Respiratory Distress, Accessory Muscle Use Cardiovascular: positive: Regular Rhythm, Regular Rate Female Pelvic Exam: positive: normal external exam, cervical os closed, normal adnexa. negative: CMT, adnexal tenderness, vaginal bleeding (small amount of dark brown discharge in vaginal vault. no active bleeding) Gastrointestinal/Abdominal: positive: Normal Bowel Sounds, Flat, Soft. negative : Tender, Guarding, Rebound Musculoskeletal: positive: Normal Inspection. negative: CVA Tenderness Extremity: positive: Normal Inspection Integumentary: positive: Normal Color Neurologic: positive: Fully Oriented, Alert, Normal Mood/Affect, Normal Response <Peter Jim - Last Filed: 03/03/19 14:19> ED Treatment Course - LABORATORY CBC & Chemistry Diagram: 03/03/19 12:23 - ADDITIONAL ORDERS Additional order review: Laboratory Results 03/03/19 03/03/19 12:23 12:23 Urine Color Light yellow Urine Appearance Slightly cloudy Urine pH 6.5 Ur Specific Canvas 1.025 Urine Protein Negative Urine Glucose (UA) Negative Urine Ketones Negative Urine Blood 3+ H Urine Nitrite Negative Urine Bilirubin Negative Urine Urobilinogen 0.2 Ur Leukocyte Esterase 1+ H Urine HCG, Qual Negative 03/03/19 12:23 RBC 3.91 MCV 88.6 MCHC 33.7 RDW 15.3 MPV 8.7 Neutrophils % 51.3 Lymphocytes % 38.8 Monocytes % 6.1 Eosinophils % 2.7 Basophils % 1.1 D <Flor Hernadez - Last Filed: 03/03/19 13:26> - LABORATORY CBC & Chemistry Diagram: 03/03/19 12:23 - RADIOLOGY Radiology Studies Ordered: Category Date Time Status TRANSVAGINAL ULTRASOUND US [US] Stat Ultrasound 03/03/19 12:48 Ordered <Peter Jim - Last Filed: 03/03/19 14:19> Medical Decision Making - Medical Decision Making The patient was seen and evaluated in conjunction with midlevel provider under my direct supervision, ancillary studies were reviewed. I agree with the plan as outlined with MCKAYLA Jim. HPI, workup/dispo as outlined. VS reviewed, wnl. ddx likely structural vs fibroid vs hormonal vs DUB vs ovarian etiology vs pcos labs and lytes wnl, reassuring no sig bleeding here as documented, anticipate discharge, pcp followup, return precautions 03/03/19 13:26 <Flor Hernadez - Last Filed: 03/03/19 13:26> - Medical Decision Making 03/03/19 12:52 Obese Patient with no significant past medical history present with complaint of 2 weeks history of persistent menstrual bleeding with intermittent crampy abdominal pain. Patient reported LMP February 14 which lasted for 3 days and started again 4 days after and has been having menstrual periods since then which has been intermittent with vaginal spotting alternating with bleeding soaking 2 pads per day. Patient reported some days she get bleeding some days she will get vaginal spotting. Patient status post tubal ligation 5 years ago. Denies vaginal discharge, nausea, vomiting, abdominal pain now, fever, chills. Patient reported history of normal menstrual. Until last month. Patient has not followed up with her INSPECTING ENGINEER or taking anything for symptoms Exam significant for dark brown discharge in vaginal vault with no active bleeding. No bright red blood in vaginal vault and no visible lesion in vaginal vault. No cervical motion tenderness. Normal cardio lung exam. Symptoms likely abdominal uterine bleeding from hormonal which could be caused by PCOS given patient morbidly obese versus less likely . CBC ordered to rule out anemia. Transvaginal ultrasound ordered to evaluate uterus. Treat based on lab results 03/03/19 14:17 CBC lab unremarkable. Urine test negative. Transvaginal ultrasound shows no acute pathology. Patient still asymptomatic and stable for discharge with RETAIL SUPPORT ASSOCIATE follow-up for management of abnormal uterine bleeding. <Peter Jim - Last Filed: 03/03/19 14:19> Discharge <Flor Hernadez - Last Filed: 03/03/19 13:26> - Discharge Information Problems reviewed: Yes - Admission No <Peter Jim - Last Filed: 03/03/19 14:19> - Discharge Information Clinical Impression/Diagnosis: Abnormal uterine bleeding (AUB) Condition: Stable Disposition: HOME - Follow up/Referral Referrals: Marcus Cardenas MD [Primary Care Provider] - Rip Max MD [Staff Physician] - - Patient Discharge Instructions Patient Printed Discharge Instructions: DI for Abnormal Uterine Bleeding Additional Instructions: Your blood work and urine was normal. Abdominal ultrasound is normal and shows no abnormality. Your symptoms likely hormonal. Follow-up with your INSPECTING ENGINEER for management of abnormal menstrual. - Post Discharge Activity
[2019-03-03 14:48] LABS: EPI CELLS 6.4 /HPF (0-5/HPF); HYALINE CASTS 12.27 /lpf (0-8); URINE BACTERIA 506.6 /hpf (NEGATIVE); URINE WBC 31.7 /hpf (0-5)
== END 2019-03-03 14:44 | disposition home or self-care (01) ==
LOC: JER 10:56
DX: N93.8 Other specified abnormal uterine and vaginal bleeding (principal)
CPT/HCPCS: 36415; 76830-TC; 81003; 84703; 85025; 86850; 86900; 86901; 87086; 87186; 99283-25

== ENCOUNTER 2019-09-23 14:49 | Emergency (ER) | payer OTHER ==
[2019-09-23 15:59] VITALS: BP 119/73; PULSE 96; TEMP 99.1; BMI 42.7
--- NOTE | 2019-09-23 16:46 | PDOC ---
Rapid Medical Evaluation Chief Complaint: Cold Symptoms Time Seen by Provider: 09/23/19 16:24 Medical Evaluation: Allergies Allergy/AdvReac Type Severity Reaction Status Date / Time No Known Allergies Allergy Verified 09/23/19 15:56 Vital Signs Temp Pulse Resp BP Pulse Ox 99.1 F 96 H 18 119/73 100 09/23/19 15:56 09/23/19 15:56 09/23/19 15:56 09/23/19 15:56 09/23/19 15:56 09/23/19 16:43 HPI: COVID-19 CDC guideline data points: The patient is a 28-year-old female with no past medical history with 3 days of body aches and chills with subjective fevers. She denies any shortness of breath or chest pain. She denies any cough. She denies any sore throat. She denies any recent travel or known COVID contacts. The patient states that she has a child with medical needs and was concerned that she had COVID. ROS: NEGATIVE: difficulty breathing, shortness of breath, chest pain, lightheadedness, dizziness, nausea, vomiting and diarrhea. Other 12 point ROS reviewed and negative. Positive: Body aches Exam: General: NAD, Well-Appearing, Awake, Alert Oriented x3. Vital signs stable. ENT: No rhinorrhea or nasal congestion. Neck: FROM, no midline tenderness. Lungs: Clear to auscultation bilaterally without wheezes, rhonchi or rales. Normal excursion. Patient is able to speak in full sentences. Heart: HR: 96, Regular rhythm, S1-S2 present, no murmurs rubs or gallops. Abdomen: Non-distended. MSK/Extremities: No decrease ROM, No obvious deformities. No obvious cyanosis noted. Neuro: Normal Gait, Cranial Nerves II through XII Grossly Intact. Skin: No obvious rashes, bruising. Color Normal Appearing. Assessment/Plan: The patient is a 28-year-old female with no past medical history with 3 days of body aches and chills with subjective fevers. She denies any shortness of breath or chest pain. She denies any cough. She denies any sore throat. She denies any recent travel or known COVID contacts. The patient states that she has a child with medical needs and was concerned that she had COVID. Patient has a history of this/these comorbidities: [none], denies recent travel and known COVID exposure. ASSESSMENT: Denies recent travel and known Covid exposure. Treatment: COVID testing done, COVID counseling given Discharge Disposition - Diagnosis Suspected COVID-19 virus infection, Counseled about COVID-19 virus infection - Discharge Dispostion Disposition: HOME Condition at time of disposition: Stable - Referrals Referrals: Marcus Cardenas MD [Primary Care Provider] - Call tomorrow - Patient Instructions Printed Discharge Instructions: [facility]Coronavirus Instructions, [facility] COVID-19 Isolation Protocol Additional Instructions: You were seen for your cough and possible Coronavirus (COVID-19) Your tested for COVID today and will get a call with the results when they become available. Please call the [facility] to make an appointment at or you can call [facility] at from 8:30 AM to 6 PM; or you can visit the [facility] website: [email or web address] for more information about testing at the [facility]. Take Tylenol 650 mg every 6 hours as needed for fever or pain. You may take Robitussin or other [id number] cough syrup. Follow the dosing instructions on the bottle. Warm tea, honey, and salt water gargles may help your symptoms. Please take precautions and self quarantine for 2 weeks and follow-up with your primary care doctor and the Department of Health. Return to the nearest emergency department for shortness of breath, difficulty breathing, chest pain, or if you have any changes in your symptoms. - Post Discharge Activity
== END 2019-09-23 17:33 | disposition home or self-care (01) ==
LOC: JERFT 14:49
DX: R50.9 Fever, unspecified (principal); M79.10 Myalgia, unspecified site
CPT/HCPCS: 99282-25; U0003

== ENCOUNTER 2019-09-25 10:30 | Emergency (ER) | payer OTHER ==
[2019-09-25 10:45] VITALS: BP 111/76; PULSE 95; TEMP 99; BMI 41.3
[2019-09-25] MEDS ORDERED: ONDANSETRON *ODT* 4 MG TABLET ONE (11:17)
[2019-09-25] MEDS ORDERED: ONDANSETRON *ODT* 4 MG TABLET SL ONE (11:18)
--- NOTE | 2019-09-25 11:20 | PDOC ---
History of Present Illness - General Chief Complaint: Pain Stated Complaint: BODY PAIN Time Seen by Provider: 09/25/19 11:10 History Source: Patient, Old Records Exam Limitations: No Limitations - History of Present Illness Travel History: No Initial Comments: 09/25/19 11:21 HISTORY OF PRESENT ILLNESS: 28-year-old woman presents emergency department for evaluation of myalgias, nausea, vomiting, diarrhea, cough and shortness of breath over the past 4 days. Patient was seen and evaluated here 2 days ago and had COVID testing performed which was negative at that time. Patient reports the diarrhea has started since her last visit and reports that she has been having loose yellow stools. She reports she is able to eat and drink most of the time but occasionally has some nonbloody nonbilious vomiting. No recent travel or sick contacts. PAST MEDICAL HISTORY: Denies past medical history SURGICAL HISTORY: Denies ALLERGIES: No known drug allergies REVIEW OF SYSTEMS General/Constitutional: Denies fever or chills. Denies weakness, weight change. HEENT: Denies change in vision. Denies ear pain or discharge. Denies sore throat. Cardiovascular: Denies chest pain or shortness of breath. Respiratory: See HPI Gastrointestinal: See HPI Genitourinary: Denies dysuria, frequency, or change in urination. Musculoskeletal: See HPI Skin and breasts: Denies rash or easy bruising. Neurologic: Denies headache, vertigo, loss of consciousness, or loss of sensation. Psychiatric: Denies depression or anxiety. Endocrine: Denies increased thirst. Denies abnormal weight change. Hematologic/Lymphatic: Denies anemia, easy bleeding, or history of blood clots. Allergic/Immunologic: Denies hives or skin allergy. Denies latex allergy. PHYSICAL EXAM General Appearance: Well-appearing, appropriately dressed. No apparent distress, no intoxication. HEENT: EOMI, PERRLA, normal ENT inspection, normal voice, TMs normal, pharynx normal. No conjunctival pallor. No photophobia, scleral icterus. Neck: Supple. Trachea midline. No tenderness, rigidity, carotid bruit, stridor, lymphadenopathy, or thyromegaly. Respiratory/Chest: Lungs CTAB. No shortness of breath, chest tenderness, respiratory distress, accessory muscle use. No crackles, rales, rhonchi, stridor, wheezing, dullness Cardiovascular: RRR. S1, S2. No JVD, murmur, bradycardia, tachycardia. Vascular Pulses: Dorsalis-Pedis (R): 2+, Dorsalis-Pedis (L): 2+ Gastrointestinal/Abdominal: Normal bowel sounds. Abdomen soft, non-distended. No tenderness or rebound tenderness. No organomegaly, pulsatile mass, guarding, hernia, hepatomegaly, splenomegaly. Lymphatic: No adenopathy, tenderness. Musculoskeletal/Extremities: Normal inspection. FROM of all extremities, normal capillary refill. Pelvis Stable. No CVA tenderness. No tenderness to extremities, pedal edema, swelling, erythema or deformity. Integumentary: Appropriate color, dry, warm. No cyanosis, erythema, jaundice or rash Neurologic: corporate wellness coordinator II-XII intact. Fully oriented, alert. Appropriate mood/affect. Motor strength 5/5. No appreciable EOM palsy, facial droop or sensory deficit. Past History - Medical History Allergies/Adverse Reactions: Allergies Allergy/AdvReac Type Severity Reaction Status Date / Time No Known Allergies Allergy Verified 09/23/19 15:56 Home Medications: Ambulatory Orders Ondansetron [Zofran *Odt*] 4 mg SL TID #21 od.tablet 09/25/19 COPD: No CHF: No DVT: No - Surgical History Abdominal Surgery: Yes (TUBAL LIGATION) - Reproductive History Is Patient Now?: No - Immunization History Immunization Up to Date: No - Psycho-Social/Smoking History Smoking Status: No Smoking History: Never smoked Have you smoked in the past 12 months: No Number of Cigarettes Smoked Daily: 0 - Substance Abuse Hx (Audit-C & DAST Scrn) How often the patient has a drink containing alcohol: Monthly or less Score: In Men: 4 or > Positive; In Women: 3 or > Positive: 1 Screen Result (Pos requires Nsg. Audit-10AR): Negative In the last yr the pt used illegal drug/Rx for NonMed reason: No Score: Yes response is considered Positive: 0 Screen Result (Positive result requires Nsg. DAST-10): Negative *Physical Exam - Vital Signs Last Vital Signs Temp Pulse Resp BP Pulse Ox 99.0 F 95 H 22 H 111/76 95 09/25/19 10:40 09/25/19 10:40 09/25/19 10:40 09/25/19 10:40 09/25/19 10:40 Medical Decision Making - Medical Decision Making 09/25/19 11:23 A/P: 28-year-old woman with flulike symptoms over the past 4 days Physical exam is unremarkable. As patient is tolerating p.o.'s here in the emergency department and with negative COVID testing 2 days ago I feel it is safe to discharge home with prescription for Zofran. Patient symptoms are consistent with gastroenteritis. Zofran 4 mg sublingual here Discharge home I discussed the physical exam findings, ancillary test results and final diagnoses with the patient. I answered all of the patient's questions. The patient was satisfied with the care received and felt comfortable with the discharge plan and treatment plan. The patient will call their primary care physician within 24 hours to arrange follow-up and will return to the Emergency Department with any new, persistent or worsening symptoms. Portions of this note have been documented using voice recognition software. As a result, errors may occur in the windshield installer process. Effort has been made to correct all grammatical and windshield installer error, but some may have been missed which may produce sporadic inaccurate windshield installer or nonsensical phrases. Discharge - Discharge Information Problems reviewed: Yes Clinical Impression/Diagnosis: Gastroenteritis Condition: Stable Disposition: HOME - Admission No - Additional Discharge Information Prescriptions: Ondansetron [Zofran *Odt*] 4 mg SL TID #21 od.tablet - Follow up/Referral Referrals: Marcus Cardenas MD [Primary Care Provider] - - Patient Discharge Instructions Additional Instructions: Rest, drink lots of fluids: Teas, water, soups Kim mega, carbonated beverages for the bubbles May try peppermint teas Avoid heavy , spicy or fatty foods until symptoms have resolved Avoid contact with others until fevers and symptoms resolved Lots of handwashing and good hygiene Continue [id number] medications for symptomatic relief Tylenol or Motrin for fever and pain May use Zofran-one tablet dissolved on tongue as needed for nausea. May repeat times one every 8 hours Followup with private physician in one to 2 days as needed Return to emergency department for worsened symptoms, fevers, dehydration - Post Discharge Activity
== END 2019-09-25 11:42 | disposition home or self-care (01) ==
LOC: JER 10:30
DX: K52.9 Noninfective gastroenteritis and colitis, unspecified (principal)
CPT/HCPCS: 99284-25; Q0162

== ENCOUNTER 2023-01-09 13:12 | Emergency (ER) | payer OTHER ==
[2023-01-09] MEDS ORDERED: IBUPROFEN 600 MG TABLET (FP) PO ONE ×2 (13:33→13:54)
[2023-01-09 13:34] VITALS: BP 104/72; PULSE 89; RESP 18; TEMP 98.3; BMI 44.6
== END 2023-01-09 15:35 | disposition home or self-care (01) ==
LOC: FER 13:12
DX: S83.92XA Sprain of unspecified site of left knee, initial encounter (principal); M25.462 Effusion, left knee; W18.40XA Slipping, tripping and stumbling without falling, unspecified, initial encounter; Y92.830 Public park as the place of occurrence of the external cause
CPT/HCPCS: 73562-TC-LT-FY; 99283-25